=== PATIENT | male | born 1990 | race Caucasian/White ===

== ENCOUNTER 2017-07-25 22:30 | Emergency (ER) | payer SELFPAY ==
[~2017-07-25] VITALS: Ht 172.7 cm; Wt 82.5 kg
[2017-07-25 22:36] VITALS: Ht 172.7 cm; Wt 82.5 kg
[2017-07-25] MEDS ORDERED: DIPHTH/TET/ACEL PERTUSS (ADULT) 0.5 ML VIAL IM* ONE (23:00)
[2017-07-25] MEDS ORDERED: CEPH-443 PO (23:05)
[2017-07-25] MEDS ORDERED: SILVER NITRATE SWAB TOP STA (23:58)
[2017-07-26] MEDS ORDERED: BACITUD TOP (00:36)
--- NOTE | 2017-07-26 00:45 | ERD ---
ER Documentation Chief Complaint Date/Time DATE: 07/26/17 TIME: 00:39 Chief Complaint right left forehead lac s/p playing volleyball HPI 26-year-old male presenting to the emergency department with a superficial small laceration to his right upper eyelid status post playing volleyball when another individual scratched him. Patient states that he went to the clinic and they sent him here because it will not stop bleeding. He denies any significant pain. He denies any vision changes. Patient states that he has not had an injury of his right eye there a long time ago therefore here he has bad vision in that eye. ROS All systems reviewed and are negative except as per history of present illness. Medications Home Meds Active Scripts Bacitracin* (Bacitracin Oint (UD)*) 1 Applic Oint, 1 APPLIC TOP ONCE for 3 Days , #10 PKT APPLY TO Prov:CICI RANDALL PA-C 07/26/17 Cephalexin* (Keflex*) 500 Mg Capsule, 500 MG PO QID for 5 Days, CAP Prov:CICI RANDALL PA-C 07/25/17 Allergies Allergies: Coded Allergies: No Known Allergy (Unverified , 07/25/17) PMhx/Soc Medical and Surgical Hx: pt denies Medical Hx, pt denies Surgical Hx History of Surgery: No Anesthesia Reaction: No Hx Neurological Disorder: No Hx Respiratory Disorders: No Hx Cardiac Disorders: Yes (HTN) Hx Psychiatric Problems: No Hx Miscellaneous Medical Probl: No Hx Alcohol Use: No Hx Substance Use: No Hx Tobacco Use: No Smoking Status: Never smoker Physical Exam Vitals Vital Signs Date Time Temp Pulse Resp B/P Pulse Ox O2 Delivery O2 Flow Rate FiO2 07/25/17 22:36 98.2 86 18 158/99 97 Physical Exam Const: Well-nourished Head: Atraumatic Eyes: Extraocular motions intact, pupils equal reactive to light ENT: Normal External Ears, Nose and Mouth. Neck: Full range of motion..~ No meningismus. Resp: Clear to auscultation bilaterally Cardio: Regular rate and rhythm, no murmurs Abd: Soft, non tender, non distended. Normal bowel sounds Skin: 1mm puncture wound on right upper eyelid Back: No midline or flank tenderness Ext: No cyanosis, or edema Neur: Awake and alert Psych: Normal Mood and Affect Results 24 hrs Current Medications Medications (Trade) Dose Ordered Sig/Rogelio Route PRN Reason Start Time Stop Time Status Last Admin Dose Admin Diphtheria/ Tetanus/Acell Pertussis (Adacel) 0.5 ml ONCE ONCE IM* 07/25/17 23:00 07/25/17 23:01 DC 07/25/17 23:37 Silver Nitrate (Silver Nitrate Swabs) 1 stick ONCE STAT TOP 07/25/17 23:58 07/25/17 23:59 DC Procedures/MDM 26-year-old male presents to the emergency department with a small superficial abrasion to his right upper eyelid from playing volleyball when another individual scratched him. This is a small abrasion and does not require any sutures. No evidence of global injury. No evidence of foreign body, arterial injury. In the ED copious amount of saline was used to irrigate the region. Due to active bleeding that was not controlled with pressure, I have used a small amount of silver nitrate swab and it stopped bleeding. Wound was dressed appropriately. Was given Tdap in the ED. Patient will given prescription for Keflex and bacitracin prophylaxis. I discussed to follow-up with his primary care physician. Restriction in the ER for any worsening signs or symptoms. He understands and agrees with this plan. Departure Diagnosis: Primary Impression: Laceration Condition: Stable Patient Instructions: Laceration, Face (Skin Glue) Referrals: EMERGENCY,[facility]CTOR GROUP Additional Instructions: FOLLOW UP WITH YOUR PRIMARY CARE PHYSICIAN TOMORROW.Return to this facility if you are not improving as expected. Take all medicines as directed. Return to this facility if you are not improving as expected. CICI RANDALL PA-C Jul 26, 2017 00:45
== END 2017-07-26 00:57 | disposition home or self-care (01) ==
LOC: FTE 22:30
DX: S01.111A Laceration without foreign body of right eyelid and periocular area, initial encounter (principal); I10 Essential (primary) hypertension; W50.4XXA Accidental scratch by another person, initial encounter; Y92.9 Unspecified place or not applicable; Z23 Encounter for immunization
CPT/HCPCS: 90471; 90715